=== PATIENT | male | born 1995 | race Caucasian/White ===

== ENCOUNTER 2018-06-05 15:44 | Day surgery (SDC) | payer OTHER ==
[2018-06-05] MEDS ORDERED: BUPIVACAINE 0.5% 30 ML SDV ONE (15:47)
[2018-06-05] MEDS ORDERED: LIDOCAINE 1% 300 MG/30 ML SDV ONE (15:47)
[2018-06-05] MEDS ORDERED: LR 1,000 ML IV ONE (16:06)
[2018-06-05] MEDS ORDERED: ceFAZolin 2 GM/DEXTROSE 100 ML IV ONE (16:06)
[2018-06-05] MEDS ORDERED: MIDAZOLAM 2 MG/2 ML VIAL IVP ONE (16:10)
--- NOTE | 2018-06-05 16:11 | PDGENHP ---
History & Physical Chief Complaint: RLQ abdominal pain History of Present Illness: 23 yo man with 24 hr hx of umbilical to RLQ abdominal pain associated with nausea and subjective fever. Mildly anorexic. No emesis. No sick contacts Pertinent Past, Social, Family History: No PMH. + etoh. No pertinent FH Relevant Physical Exam: AA&O. RRR. CTA. Abd soft tender Mcburney's point. + psoas. no cva. Extremities 2+ pulses bilat. No adenopathy Cardiorespiratory Assessment: RRR. CTA. Acute appendicitis. Recommend Laparoscopic appendectomy. Risks benefits and alternatives outlined and understood. WBC 13K
--- NOTE | 2018-06-05 16:12 | PDANEPAE ---
ANE History of Present Illness acute appendicitis ANE Past Medical History - Cardiovascular History Hx Hypertension: No Hx Arrhythmias: No Hx Chest Pain: No Hx Coronary Artery / Peripheral Vascular Disease: No Hx CHF / Valvular Disease: No Hx Palpitations: No - Pulmonary History Hx COPD: No Hx Asthma/Reactive Airway Disease: No Hx Recent Upper Respiratory Infection: No Hx Oxygen in Use at Home: No Hx Sleep Apnea: No - Neurologic History Hx Cerebrovascular Accident: No Hx Seizures: No Hx Dementia: No - Endocrine History Hx Diabetes: No Hypothyroid: No Hyperthyroid: No Obesity: no - Renal History Hx Renal Disorders: No - Liver History Hx Hepatic Disorders: No - Neurological & Psychiatric Hx Hx Neurological and Psychiatric Disorders: No - Cancer History Hx Cancer: No - Congenital Disorder History Hx Congenital Disorders: No - GI History GERD: no Hx Gastrointestinal Disorders: No - Chronic Pain History Chronic Pain: No - Surgical History Prior Surgeries: [place] teeth. ANE Review of Systems Review of Systems: - Exercise capacity Exercise capacity: >=4 METS METS (RN): 6 METS - Systems Gastrointestinal: Reports: abdominal pain ANE Patient History - Allergies Allergies/Adverse Reactions: No Known Allergies Allergy (Unverified 06/05/18 16:06) - Home Medications Home Medications: NK [No Known Home Meds] 06/05/18 [Last Taken Unknown] - NPO status NPO Since - Liquids (Date): 06/05/18 NPO Since - Liquids (Time): 11:00 NPO Since - Solids (Date): 06/05/18 NPO Since - Solids (Time): 11:00 - Anes Hx Anes Hx: no prior problems - Smoking Hx Smoking Status: Never smoked - Alcohol Use Alcohol Use: Occasionally - Family Anes Hx Family Anes Hx: neg - N/A Family Hx Anesthesia Complications: None. ANE Labs/Vital Signs - Vital Signs Blood Pressure: 143/103 Heart Rate: 74 Respiratory Rate: 18 O2 Sat (%): 98 Height: 175.26 cm Weight: 74.843 kg ANE Physical Exam - Airway Neck exam: FROM Mallampati Score: Class 1 Mouth exam: normal dental/mouth exam - Pulmonary Pulmonary: no respiratory distress, no rales or rhonchi, clear to auscultation - Cardiovascular Cardiovascular: regular rate and rhythym, no murmur, rub, or gallop - ASA Status ASA Status: I, E ANE Anesthesia Plan Anesthesia Plan: general endotracheal anesthesia Total IV Anesthesia: No
[2018-06-05] MEDS ORDERED: fentaNYL 100 MCG/2 ML INJ ONE (16:27)
[2018-06-05] MEDS ORDERED: DEXAMETHASONE 4 MG/ML VIAL ONE (16:27)
[2018-06-05] MEDS ORDERED: ONDANSETRON 4 MG/2 ML VIAL ONE (16:27)
[2018-06-05] MEDS ORDERED: REMIFENTANIL HCL 1 MG VIAL ONE (16:27)
[2018-06-05] MEDS ORDERED: ROCURONIUM 50 MG/5 ML VIAL ONE (16:27)
[2018-06-05] MEDS ORDERED: PROPOFOL/EMULSION 500 MG/50 ML BOTTLE IV ONE (16:27)
[2018-06-05] MEDS ORDERED: PROPOFOL 200 MG/20 ML VIAL ONE (16:27)
[2018-06-05] MEDS ORDERED: SUCCINYLCHOLINE CHLORIDE 200 MG/10 ML SYR IVP ONE (16:28)
[2018-06-05] MEDS ORDERED: KETOROLAC 30 MG/1 ML SDV ONE (16:28)
[2018-06-05] MEDS ORDERED: LIDOCAINE 2% 5 ML SDV ONE (16:28)
[2018-06-05] MEDS ORDERED: NALOXONE HCL 0.4 MG/ML INJ IVP PRN (17:16)
[2018-06-05] MEDS ORDERED: HYDROmorphONE/DILAUDID 2 MG/ML INJ IVP PRN (17:16)
[2018-06-05] MEDS ORDERED: fentaNYL 100 MCG/2 ML INJ IVP PRN (17:16)
[2018-06-05] MEDS ORDERED: ACETAMINOPHEN 500 MG TAB PO PRN (17:16)
[2018-06-05] MEDS ORDERED: ONDANSETRON 4 MG/2 ML VIAL IVP PRN ×2 (17:16→17:47)
[2018-06-05] MEDS ORDERED: HYDROCODONE/APAP 5/325 TAB PO PRN ×2 (17:16→17:47)
[2018-06-05] MEDS ORDERED: PROMETHAZINE HCL 25 MG/ML INJ IVP PRN (17:16)
[2018-06-05] MEDS ORDERED: PHENYLEPHRINE HCL 100 MCG/ML SYR IVP PRN (17:16)
[2018-06-05] MEDS ORDERED: LR 500 ML IV PRN (17:16)
[2018-06-05] MEDS ORDERED: oxyCODONE IR 5 MG TAB PO PRN (17:16)
[2018-06-05] MEDS ORDERED: SUGAMMADEX SODIUM 200 MG/2 ML VIAL IVP ONE (17:27)
--- NOTE | 2018-06-05 17:47 | POSTOPPROG ---
Post Op Note Date of Operation: 06/05/18 Surgeon: Gael Sosa Technical Consultant: Regulo HARVEY Anesthesiologist: Yaw Thompson Anesthesia: GET(General Endotracheal) Pre-op Diagnosis: Acute appendicitis Post-op Diagnosis: same Procedure: Laparoscopic appendectomy Findings: Acute appendiceal inflammation Inf/Abcess present in the surg proc area at time of surgery?: No EBL: Minimal Specimen(s): Appendix to permanent pathology
--- NOTE | 2018-06-05 17:53 | POSTANESTH ---
Post Anesthetic Evaluation Cardiovascular Status: Normal, Stable Respiratory Status: Normal, Stable Level of Consciousness/Mental Status: Mildly Sleepy, Arousable Pain Control: Adequate, Prn Tx Ordered Nausea/Vomiting Control: Adequate, Prn Tx Ordered Complications Possibly Related to Anesthesia: None Noted
[2018-06-05] MEDS ORDERED: LR 1,000 ML IV SCH (18:00)
[2018-06-05 18:53] VITALS: BP 148/84
--- NOTE | 2018-06-06 05:58 | GOP ---
DATE OF OPERATION: SURGEON: Gael Sosa MD ORDNANCE ARTIFICER HELPER: Julia Vaughn PA-C; use of a physician assistant laboratory director for 1st assist is standard and necessary for this type of case. ANESTHESIA: General endotracheal. ANESTHESIOLOGIST: Dr. Damon. PREOPERATIVE DIAGNOSIS: Appendicitis. POSTOPERATIVE DIAGNOSIS: Appendicitis. PROCEDURE PERFORMED: Laparoscopic appendectomy. FINDINGS: Suppurative appendicitis. SPECIMENS: Appendix to permanent pathology. ESTIMATED BLOOD LOSS: 5 mL. INDICATIONS: This is a 23-year-old gentleman sent from [facility] to my office with signs of acute a ppendicitis. Ultrasound in the office confirmed noncompressible tubular structure in the right lower quadrant as well as having a white count of 13,000. Based upon this finding, we took him to the ope rating room for urgent appendectomy. DESCRIPTION OF PROCEDURE: Patient was brought to the operating room after induction of endotracheal anesthesia in supine position. Abdomen was prepped with chlorhexidine and draped sterilely. Time-ou t for procedure was then performed according to institutional standards. Local anesthetic was infuse d in skin and subcutaneous tissues of the trocar site and the abdomen was approached with open suprau mbilical trocar placed. The abdomen was insufflated to 15 TOR with carbon dioxide. Working trocars were placed in the lower midline under direct visualization. The appendix was seen in the right lowe r quadrant along with a right inguinal hernia without any incarceration of contents. The appendix wa s brought in the field of dissection. The mesentery was controlled with bipolar LigaSure energy, and the base of the appendix was divided flush with the cecum using an Endo-PRESTON stapler. The appendix w as placed into an endobag and brought out through the umbilical incision. The abdomen inspected. He mostasis was assured. No sign of purulence outside. Therefore, the working trocars were removed. T he abdomen was deflated. Fascia was reapproximated using 0 Vicryl. All ports were reapproximated at the skin level using 4-0 Monocryl. Dermabond was applied. Patient awakened, extubated, and taken t o recovery room in stable condition. Needle, instrument, and sponge counts correct x2. FLUIDS GIVEN: 1 L crystalloid. COMPLICATIONS: None. /[id number]/MODL
== END 2018-06-05 19:27 | disposition home or self-care (01) ==
LOC: FSGY 15:44
PROVIDERS: ATTEND Surgery
PROC: 0DTJ4ZZ Resection of Appendix, Percutaneous Endoscopic Approach (ICD-10-PCS; principal; 2018-06-05 16:00)
DX: K35.80 Unspecified acute appendicitis (principal)
CPT/HCPCS: J0330; J0690; J1100; J1885; J2250; J2405; J2704; J3010